=== PATIENT | male | born 1955 | race African-American/Black ===

== ENCOUNTER → 2017-01-11 | Outpatient (CLI) | payer MEDICARE, OTHER ==
[~2017-01-11] MED LIST: /ACETCOD2T PO; CLOP75TA2 PO; FISHCAP PO; MAGN400C2 PO; PRED1SUS OP; SIMVISTATIN PO; SODIUM FLORIDE MT; ZEST40TA PO; aricept PO; neurontin PO
--- NOTE | 2017-01-11 12:15 | REP ---
MRI brain without contrast: History: Dementia. Cerebral infarction and occlusion. Right carotid artery. Comparison MRI study of the brain is from August 02, 2015. Technique: Axial and sagittal imaging planes are utilized for T1 and T2-weighted scans. Sequences include spin-echo, fast spin echo, FLAIR, and diffusion weighted sequences. MRI findings: The previously noted tiny area of increased T2 signal intensity is again seen in the left thalamus unchanged from the August 02, 2015 study. Small vessel atherosclerotic pattern of T2 hyperintensity seen in the periventricular white matter. There is generalized volume loss and concordant ventricular enlargement unchanged from the prior study. A persistent cavum septum pellucidum is again seen. Diffusion weighted scans show no evidence to suggest acute ischemia. There is no evidence of intracranial hemorrhage. No extra-axial fluid collection, mass, infarct or midline shift is seen. Craniocervical junction and upper cervical cord are normal in appearance. There is no MR evidence of significant paranasal sinus disease. No intraorbital abnormality is seen. Impression: Small vessel atherosclerotic changes and some volume loss. No change from comparison study August 02, 2015. No acute intracranial lesion. Signed by Wes Monk MD 01/11/2017 01:18 P
== END ==
LOC: M PLARAD 08:26
PROVIDERS: ATTEND Physician Assistant Medical
DX: F03.90 Unspecified dementia, unspecified severity, without behavioral disturbance, psychotic disturbance, mood disturbance, and anxiety (principal); I65.21 Occlusion and stenosis of right carotid artery; I63.8 Other cerebral infarction

== ENCOUNTER → 2017-01-11 | Outpatient (CLI) | payer MEDICARE, OTHER ==
--- NOTE | 2017-01-11 12:16 | REP ---
Bilateral carotid duplex ultrasound: Comparison is 10/02/2015. The patient has known total occlusion of the right internal carotid artery. Peak flow velocities: Peak ICA flow velocity on the right unobtainable Peak ICA velocity on the left 60 cm/sec. Diastolic ICA velocity on the right unobtainable Diastolic ICA velocity on the left 24 cm/sec IC/CC ratio tab right unobtainable IC/CC ratio left tab 0.72. There is intimal thickening in the left common carotid artery. In the left of bulb, left internal carotid artery and left external carotid there is no visible atheromatous plaque. Impression: There is no evidence of stenosis on the left. 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 There is antegrade flow in the vertebral arteries bilaterally. Signed by Osiel San MD 01/11/2017 11:51 A
== END ==
LOC: M RAD 09:50
PROVIDERS: ATTEND Physician Assistant Medical
DX: I65.21 Occlusion and stenosis of right carotid artery (principal); I63.8 Other cerebral infarction

== ENCOUNTER → 2017-07-16 | Outpatient (CLI) | payer MEDICARE, OTHER ==
[~2017-07-16] MED LIST changes: -/ACETCOD2T PO; -CLOP75TA2 PO; -FISHCAP PO; -MAGN400C2 PO; -PRED1SUS OP; +PROHANCE 279.3MG/ML 15ML VIAL (A9576) As Ordered; -SIMVISTATIN PO; -SODIUM FLORIDE MT; -ZEST40TA PO; -aricept PO; -neurontin PO
== END ==
LOC: M RAD 11:20
DX: H91.22 Sudden idiopathic hearing loss, left ear (principal)
CPT/HCPCS: A9576

== ENCOUNTER → 2018-05-20 | Outpatient (CLI) | payer MEDICARE, OTHER | LOC: M RAD 11:57 | DX: I65.21 Occlusion and stenosis of right carotid artery (principal); I63.89 Other cerebral infarction | CPT/HCPCS: 93880 ==

== ENCOUNTER 2018-10-12 16:21 | Emergency (ER) | payer MEDICARE, OTHER ==
[~2018-10-12] VITALS: Ht 182.9 cm; Wt 74.0 kg
[~2018-10-12 16:21] MED LIST changes: +ACET1TAB15 PO; +CLOP75TA2 PO; +D 1010004 PO; +FISHCAP PO; +GABA-845 PO; +MAGN400C2 PO; +PRED1SUS OP; +PRED20TA PO; -PROHANCE 279.3MG/ML 15ML VIAL (A9576) As Ordered; +SIMVISTATIN PO; +SODIUM FLORIDE MT; +ZEST40TA PO; +aricept PO; +neurontin PO
[2018-10-12] MEDS ORDERED: AMIT10TA (16:48)
[2018-10-12] MEDS ORDERED: BACL1TAB8 PO (16:48)
[2018-10-12] MEDS ORDERED: PRED10TA2 PO (16:48)
[2018-10-12] MEDS ORDERED: MORPHINE 4 MG/ML 1ML VIAL/SYRINGE (J2270) IV PRN (17:30)
[2018-10-12] MEDS ORDERED: ONDANSETRON 4MG/2ML VIAL (J2405) IV ONE (17:30)
[2018-10-12 17:57] LABS: HEMATOCRIT 47.8 % (42.0-52.0); MEAN CORPUSCULAR HEMOGLOBIN 27.9 pg (27.0-33.0); MEAN CORPUSCULAR HGB CONC 33.5 g/dl (32.0-36.5); MEAN CORPUSCULAR VOLUME 83.3 fl (80.0-96.0); PLATELET COUNT, AUTOMATED 389 10^3/uL (150-450); RED BLOOD COUNT 5.74 10^6/uL (4.30-6.10); WHITE BLOOD COUNT 12.8 10^3/uL (4.0-10.0)
[2018-10-12] MEDS ORDERED: VITATAB11 PO (18:33)
[2018-10-12] MEDS ORDERED: PREDOPD OU (18:33)
[2018-10-12] MEDS ORDERED: FISH7.5C PO (18:33)
[2018-10-12] MEDS ORDERED: COQ1200C3 PO (18:33)
[2018-10-12] MEDS ORDERED: ACET-716 PO (18:33)
[2018-10-12] MEDS ORDERED: TURM450C PO (18:33)
[2018-10-12 18:38] LABS: BLOOD UREA NITROGEN 16 MG/DL (7-18); CALCIUM LEVEL 10.4 MG/DL (8.8-10.2); CARBON DIOXIDE LEVEL 28 MEQ/L (21-32); CHLORIDE LEVEL 94 MEQ/L (98-107); CREATININE FOR GFR 1.01 MG/DL (0.70-1.30); GLOMERULAR FILTRATION RATE > 60.0 (>49); GLUCOSE, FASTING 81 MG/DL (70-100); POTASSIUM SERUM 3.6 MEQ/L (3.5-5.1); SODIUM LEVEL 133 MEQ/L (136-145)
[2018-10-12] MEDS ORDERED: LORazepam 2 MG/ML VIAL (J2060) IV STA (20:48)
--- NOTE | 2018-10-12 23:14 | REPVR ---
EXAM: MR Lumbar Spine Without Contrast. EXAM DATE/TIME: 10/12/2018 10:04 PM CLINICAL HISTORY: 63 years old, male; Pain; Lumbago with sciatica; Bilateral; Patient HX: Spasms severe back pain; Additional info: Acute left l3/4 radiculopathy TECHNIQUE: Imaging protocol: Multiplanar magnetic resonance images of the lumbar spine without intravenous contrast. COMPARISON: MRI-Spine, L.S. without con 05/11/2013 2:38 PM FINDINGS: Motion artifact degrades images. Vertebrae: Normal alignment. L1-L2: Diffuse annular bulge at L1-2. Bilateral mild foraminal narrowing. No lateral recess narrowing. L2-L3: Diffuse annular bulge L2-3. Increasing size of a left foraminal disc protrusion with likely impingement of the exiting L2 nerve root on the left. Bilateral facet joint arthropathy. Mild bilateral foraminal narrowing. No lateral recess narrowing. L3-L4: There is a mild central spinal stenosis at L3-4 secondary to diffuse annular bulging, thickened ligamentum flavum and facet joint arthropathy. Moderate bilateral foraminal narrowing. Bilateral lateral recess stenosis. L4-L5: Diffuse annular bulging at L4-5. Bilateral facet joint arthropathy. Moderate to severe bilateral foraminal narrowing. Possible compression of the exiting L4 nerve roots bilaterally. No lateral recess narrowing. L5-S1: Bilateral facet joint arthropathy at L5-S1. Mild bilateral foraminal narrowing. No lateral recess narrowing. Spinal cord: Normal signal. No cord compression. Soft tissues: Unremarkable. IMPRESSION: Diffuse degenerative spondylosis. Mild central spinal stenosis at L3-4. Bilateral foraminal stenosis, mild at L2-3, moderate at L3-4, moderate to severe L4-5 with possible compression of the exiting L4 nerve roots and mild at L5-S1. Increasing size of a left foraminal disc protrusion at L2-3 with possible compression of the exiting nerve root on the left. Electronically signed by: Navid Currie On 10/12/2018 23:14:07 PM
[2018-10-12] MEDS ORDERED: LIDO5DIS41 TD (23:29)
[2018-10-12] MEDS ORDERED: PERC5TAB12 PO (23:29)
[2018-10-12] MEDS ORDERED: OXYCODONE/APAP 5MG/325MG(BULK FOR ED) 1 TABLET PO ONE (23:30)
[2018-10-13 00:44] VITALS: BP 160/76
--- NOTE | 2018-10-13 06:29 | ED PDOC ---
Post-Departure Follow-Up dr aguayo/ridge faxed formal report of mri ls spine for fu Chaparro Cantu MD Oct 13, 2018 06:29
== END 2018-10-13 00:49 | disposition home or self-care (01) ==
LOC: EDBD 16:21 → M ED 16:21
DX: M54.16 Radiculopathy, lumbar region (principal); I10 Essential (primary) hypertension; G30.9 Alzheimer's disease, unspecified; M51.9 Unspecified thoracic, thoracolumbar and lumbosacral intervertebral disc disorder; Z79.899 Other long term (current) drug therapy
CPT/HCPCS: 72148; 80048; 85027; 96374; 96375; 99284; J2060; J2270; J2405

== ENCOUNTER → 2019-08-31 | Outpatient (CLI) | payer MEDICARE, OTHER ==
[~2019-08-31] MED LIST changes: +ACET-716 PO; +AMIT10TA; +BACL1TAB8 PO; +COQ1200C3 PO; +FISH7.5C PO; +LIDO5DIS41 TD; +PERC5TAB12 PO; +PRED10TA2 PO; +PREDOPD OU; +TURM450C PO; +VITATAB11 PO
--- NOTE | 2019-08-31 12:24 | REP ---
Clinical: Symptoms related to atherosclerotic disease and intermittent claudication. Technique: Real time dowling scale and color Doppler evaluation of the bilateral lower extremity arterial vasculature using linear high frequency transducer. Findings: Dowling scale and color images demonstrate extensive bilateral mixed atheromatous plaquing. Monophasic wave patterns are noted bilaterally below the level of the popliteal arteries along with stenosis in the left common femoral artery and proximal anterior tibial artery. Peak systolic velocities (cm/sec) RIGHT LEFT MARIZA 0.8 0.8 Common femoral artery 92.1 289.0 Profunda femoris 120.0 60.4 SFA (proximal) 93.1 68.7 SFA (mid) 92.1 67.2 SFA (distal) 89.5 87.0 Popliteal artery 45.5 55.8 ROHIT (prox.) 20.9 135.0 Tibioperoneal trunk 71.1 65.4 COKE STILL CLEANER (prox.) 68.8 64.6 COKE STILL CLEANER (distal) 65.4 42.8 ROHIT (distal) 58.9 51.3 Impression: Advanced atheromatous changes bilaterally. Focal areas of stenosis suggested in the left common femoral artery and proximal anterior tibial artery. Electronically Signed by Michael Stokes MD 08/31/2019 12:15 P
== END ==
LOC: M RAD 10:31
PROVIDERS: ATTEND Physician Assistant
DX: I70.203 Unspecified atherosclerosis of native arteries of extremities, bilateral legs (principal)

== ENCOUNTER → 2020-08-12 | Outpatient (CLI) | payer MEDICARE, OTHER ==
--- NOTE | 2020-08-12 13:31 | REP ---
INDICATION: STENOSIS COMPARISON: Comparison study May 20, 2018.. TECHNIQUE: Real-time ultrasound evaluation and duplex Doppler interrogation of the extracranial carotid vasculature is performed. FINDINGS: Antegrade flow is observed in both vertebral arteries. Right carotid: The right common carotid artery shows diffuse intimal thickening but is otherwise unremarkable. There is extensive plaquing in the proximal ICA on the right side in the right proximal ICA is again noted to be occluded. Velocity chart right carotid: Right CCA PSV: 56 cm/S Right ICA PSV: 0 cm/S Right ICA EDV: 0 cm/S Right ECA PSV: 62 cm/S Right ICA/CCA ratio: 0 Left carotid: The left common carotid artery shows diffuse intimal thickening but is otherwise unremarkable. There is mild mixed plaquing in the left carotid bulb and proximal ICA on two-dimensional scanning. Color flow and spectral Doppler interrogation are unremarkable on the left. Velocity chart left carotid: Left CCA PSV: 89 cm/S Left ICA PSV: 53 cm/S Left ICA EDV: 23 cm/S Left ECA PSV: 47 cm/S Left ICA/CCA ratio: 0.6 IMPRESSION: The right internal carotid artery is again noted to be occluded. Less than 50% category narrowing in the left ICA by Doppler velocity criteria. Left ICA Doppler velocities have not changed substantially since the prior study. <Electronically signed by Aniket Monk > 08/12/20 [id number]
== END ==
LOC: M RAD 11:35
PROVIDERS: ATTEND Physician Assistant Medical
DX: I65.21 Occlusion and stenosis of right carotid artery (principal); I63.89 Other cerebral infarction

== ENCOUNTER → 2020-09-19 | Outpatient (CLI) | payer OTHER ==
[~2020-09-19] MED LIST changes: -AMIT10TA; +AMIT10TA7
--- NOTE | 2020-09-19 15:44 | REP ---
INDICATION: ATHEROSCLEROSIS COMPARISON: 08/31/2019 TECHNIQUE: Real time dowling scale and color Doppler evaluation of the bilateral lower extremity arterial vasculature using linear high frequency transducer. FINDINGS: Dowling scale and color images demonstrate severe calcified atherosclerotic changes bilaterally. Right lower extremity demonstrates biphasic wave patterns. There is mild stenosis at the common femoral artery as well as 5:1 stenosis involving the proximal anterior tibial artery and occlusion of the distal posterior tibial artery. Left lower extremity demonstrates biphasic wave patterns to the level of the mid superficial femoral artery followed by monophasic wave patterns distally. Large calcifications causing posterior shadowing obscure the possibility of suspected stenosis at the left common femoral artery. Right MARIZA: Not obtainable Left MARIZA: 0.9 Peak systolic velocities (cm/sec) Common femoral artery: Right 77/119; Left 299/141 Profunda femoris: Right 120; Left 178 SFA (proximal): Right 174; Left 95 SFA (mid): Right 82; Left 55 SFA (distal): Right 104; Left 90 Popliteal artery: Right 48; Left 46 ROHIT (prox.): Right 41/221; Left 88 Tibioperoneal trunk: Right 55; Left 36 NOTE TAKER (prox.): Right 48; Left 32 NOTE TAKER (distal): Right occluded; Left 35 ROHIT (distal): Right 50; Left 45 IMPRESSION: 1. Severe calcified atherosclerotic changes as described above including visible stenosis in the right proximal anterior tibial artery and occlusion of the distal right posterior tibial artery. 2. Stenosis at the left common femoral artery cannot be excluded due to significant calcified atheromatous plaquing. 3. Findings appear progressively worse when compared to prior examination. <Electronically signed by Michael Stokes > 09/19/20 [id number]
== END ==
LOC: M RAD 13:52
PROVIDERS: ATTEND Physician Assistant
DX: I70.213 Atherosclerosis of native arteries of extremities with intermittent claudication, bilateral legs (principal)

== ENCOUNTER → 2021-05-05 | Outpatient (CLI) | payer OTHER ==
[~2021-05-05] MED LIST changes: +GABA-283 PO; -GABA-845 PO
--- NOTE | 2021-05-05 19:54 | REP ---
INDICATION: PAIN RIGHT FOOT, HX RIGHT SECOND TOE AMPUTATION COMPARISON: None. TECHNIQUE: AP, lateral, bilateral oblique views right foot. FINDINGS: Patient is noted to be status post partial amputation through the 2nd toe proximal phalanx. Generalized osteopenia and degenerative changes are appreciated. No acute fracture or dislocation. Surrounding soft tissues are relatively normal and without significant swelling, subcutaneous emphysema, or foreign body. IMPRESSION: Prior amputation at the 2nd toe.. Generalized age-related osteopenia and degenerative changes. <Electronically signed by Michael Stokes > 05/05/211950
== END ==
LOC: M RAD 12:40
PROVIDERS: ATTEND Physician Assistant Medical
DX: M85.871 Other specified disorders of bone density and structure, right ankle and foot (principal); M79.671 Pain in right foot; Z89.421 Acquired absence of other right toe(s)

== ENCOUNTER → 2021-12-19 | Outpatient (CLI) | payer MEDICARE, OTHER | LOC: M PLAIMG 15:17 | PROVIDERS: ATTEND Nurse Practitioner Family | DX: Z12.2 Encounter for screening for malignant neoplasm of respiratory organs (principal); Z87.891 Personal history of nicotine dependence ==

== ENCOUNTER → 2022-02-06 | Outpatient (CLI) | payer MEDICARE | LOC: M WHC 10:52 | PROVIDERS: ATTEND Surgery | DX: I65.23 Occlusion and stenosis of bilateral carotid arteries (principal) ==

== ENCOUNTER → 2022-03-06 | Outpatient (CLI) | payer OTHER ==
[~2022-03-06] MED LIST changes: +FISH10005 PO; -FISH7.5C PO
== END ==
LOC: M RAD 16:53
PROVIDERS: ATTEND Nurse Practitioner Family
DX: J44.9 Chronic obstructive pulmonary disease, unspecified (principal); R94.2 Abnormal results of pulmonary function studies; R91.8 Other nonspecific abnormal finding of lung field

== ENCOUNTER → 2022-05-19 | Outpatient (CLI) | payer OTHER ==
[2022-05-19 15:47] LABS: BASO % 0.5 % (0.0-1.0); EOS # 0.1 10^3/uL (0.0-0.5); HEMATOCRIT 44.7 % (42.0-52.0); HEMOGLOBIN 14.7 g/dl (13.5-17.5); LYMPH # 2.5 10^3/uL (1.5-5.0); MEAN CORPUSCULAR HEMOGLOBIN 27.9 pg (27.0-33.0); MEAN CORPUSCULAR HGB CONC 32.9 g/dl (32.0-36.5); MEAN CORPUSCULAR VOLUME 84.8 fl (80.0-96.0); MONO # 0.7 10^3/uL (0.0-0.8); MONO % 8.8 % (2.0-8.0); NEUTROPHILS # 4.7 10^3/uL (1.5-8.5); NEUTROPHILS % 58.5 % (36.0-66.0); PLATELET COUNT, AUTOMATED 342 10^3/uL (150-450); RED BLOOD COUNT 5.27 10^6/uL (4.30-6.10); WHITE BLOOD COUNT 8.1 10^3/uL (4.0-10.0)
[2022-05-19 16:37] LABS: ALBUMIN 3.5 GM/DL (3.2-5.2); ALT/SGPT 14 U/L (12-78); BILIRUBIN,TOTAL 0.5 MG/DL (0.2-1.0); BLOOD UREA NITROGEN 13 MG/DL (7-18); CALCIUM LEVEL 10.2 MG/DL (8.8-10.2); CARBON DIOXIDE LEVEL 32 MEQ/L (21-32); CHLORIDE LEVEL 101 MEQ/L (98-107); CREATININE FOR GFR 1.04 MG/DL (0.70-1.30); GLOMERULAR FILTRATION RATE > 60.0 (>49); GLUCOSE, FASTING 111 MG/DL (70-100); POTASSIUM SERUM 4.1 MEQ/L (3.5-5.1); SODIUM LEVEL 138 MEQ/L (136-145); THYROID STIMULATING HORMONE 0.731 uIU/ML (0.358-3.740); TOTAL PROTEIN 8.3 GM/DL (6.4-8.2)
[2022-05-19 17:17] LABS: FOLATE 22.1 NG/ML; VITAMIN B12 LEVEL 504 PG/ML
== END ==
LOC: M LAB 14:16
PROVIDERS: ATTEND Psychiatry & Neurology Neurology
DX: R41.3 Other amnesia (principal); E53.8 Deficiency of other specified B group vitamins; E51.9 Thiamine deficiency, unspecified; E03.9 Hypothyroidism, unspecified

== ENCOUNTER → 2022-08-10 | Outpatient (CLI) | payer MEDICARE, OTHER | LOC: M RAD 17:20 | PROVIDERS: ATTEND Nurse Practitioner Family | DX: M25.471 Effusion, right ankle (principal); Z89.421 Acquired absence of other right toe(s) ==

== ENCOUNTER → 2022-09-22 | Outpatient (CLI) | payer MEDICARE, OTHER ==
[2022-09-22 15:17] LABS: APPEARANCE, URINE CLEAR (CLEAR); BACTERIA, URINE AUTO NEGATIVE (NEGATIVE); BILIRUBIN, URINE AUTO NEGATIVE (NEGATIVE); BLOOD, URINE BLOOD 1+ (NEGATIVE); COLOR, URINE STRAW (YELLOW); GLUCOSE, URINE (UA) AUTO NEGATIVE (NEGATIVE); KETONE, URINE AUTO NEGATIVE (NEGATIVE); LEUKOCYTE ESTERASE, URINE AUTO NEGATIVE (NEGATIVE); NITRITE, URINE AUTO NEGATIVE (NEGATIVE); PROTEIN, URINE AUTO 1+ mg/dL (NEGATIVE); RBC, URINE AUTO 0 /HPF (0-3); SPECIFIC GRAVITY URINE AUTO 1.004 (1.002-1.035); SQUAMOUS EPITHELIAL CELL UR AU 0 /HPF (0-6); UROBILINOGEN, URINE AUTO 0.2 mg/dL (0.0-2.0); WBC, URINE AUTO 1 /HPF (0-3)
[2022-09-24 23:08] LABS: PSA TOTAL 0.4 ng/mL (0.0-4.0)
== END ==
LOC: M LAB 14:43
PROVIDERS: ATTEND Family Medicine
DX: N39.41 Urge incontinence (principal); R97.20 Elevated prostate specific antigen [PSA]

== ENCOUNTER → 2023-03-18 | Outpatient (CLI) | payer MEDICARE, OTHER ==
[~2023-03-18] MED LIST changes: -GABA-283 PO; +GABA-284 PO
== END ==
LOC: M RAD 12:05
PROVIDERS: ATTEND Surgery
DX: I65.22 Occlusion and stenosis of left carotid artery (principal)

== ENCOUNTER 2023-12-06 10:18 | Emergency (ER) | payer MEDICARE, OTHER ==
[~2023-12-06] VITALS: Ht 182.9 cm; Wt 70.1 kg
[2023-12-06 12:23] LABS: BASO % 0.5 % (0.0-1.0); EOS # 0.1 10^3/uL (0.0-0.5); EOS % 0.8 % (0.0-3.0); HEMATOCRIT 39.7 % (42.0-52.0); HEMOGLOBIN 13.2 g/dl (13.5-17.5); LYMPH # 1.9 10^3/uL (1.5-5.0); LYMPH % 22.9 % (24.0-44.0); MEAN CORPUSCULAR HEMOGLOBIN 26.9 pg (27.0-33.0); MEAN CORPUSCULAR HGB CONC 33.2 g/dl (32.0-36.5); MONO # 0.8 10^3/uL (0.0-0.8); MONO % 9.4 % (2.0-8.0); NEUTROPHILS # 5.6 10^3/uL (1.5-8.5); NEUTROPHILS % 65.9 % (36.0-66.0); PLATELET COUNT, AUTOMATED 360 10^3/uL (150-450); WHITE BLOOD COUNT 8.5 10^3/uL (4.0-10.0)
[2023-12-06 12:48] LABS: BLOOD UREA NITROGEN 9 MG/DL (9-23); CALCIUM LEVEL 9.3 MG/DL (8.3-10.6); CARBON DIOXIDE LEVEL 25 MMOL/L (20-31); CHLORIDE LEVEL 98 MMOL/L (98-107); CREATININE FOR GFR 0.88 MG/DL (0.70-1.30); GLOMERULAR FILTRATION RATE > 60.0 (>49); GLUCOSE, FASTING 74 MG/DL (74-106); POTASSIUM SERUM 3.9 MMOL/L (3.5-5.1); SODIUM LEVEL 130 MMOL/L (136-145)
[2023-12-06] MEDS ORDERED: MORPHINE 4 MG/ML 1ML VIAL IV ONE (14:25)
[2023-12-06] MEDS ORDERED: ONDANSETRON 4MG 2ML VIAL IV ONE (14:25)
[2023-12-06] MEDS: NS 1,000 ML IV ONE (15:26)
[2023-12-06] MEDS: ACETAMINOPHEN *IV* 1,000 MG in IV 1 EA IV ONE (15:27)
[2023-12-06] MEDS: DALBAVANCIN 1,500 MG in D5W 250 ML IV ONE (15:27)
[2023-12-06] MEDS ORDERED: TRAM50TA2 PO (15:57)
[2023-12-06 16:04] VITALS: BP 200/100; TEMP 96.3; O2SAT 100
== END 2023-12-06 17:00 | disposition home or self-care (01) ==
LOC: M ED 10:18
DX: S91.002A Unspecified open wound, left ankle, initial encounter (principal); L03.116 Cellulitis of left lower limb; R22.42 Localized swelling, mass and lump, left lower limb; X58.XXXA Exposure to other specified factors, initial encounter; Y92.9 Unspecified place or not applicable; Y93.9 Activity, unspecified; Y99.9 Unspecified external cause status; I10 Essential (primary) hypertension; E78.5 Hyperlipidemia, unspecified; Z86.73 Personal history of transient ischemic attack (TIA), and cerebral infarction without residual deficits; Z79.899 Other long term (current) drug therapy
CPT/HCPCS: 73610; 80048; 83605; 85025; 86140; 87040; 87070; 87077; 87186; 96374; 96375; 99283; J0131; J0875

== ENCOUNTER 2023-12-15 18:55 | Emergency (ER) | payer MEDICARE, OTHER ==
[~2023-12-15] VITALS: Ht 182.9 cm; Wt 70.0 kg
[~2023-12-15 18:55] MED LIST changes: +TRAM50TA2 PO
[2023-12-15 20:04] LABS: BASO % 0.3 % (0.0-1.0); EOS % 0.2 % (0.0-3.0); HEMATOCRIT 36.9 % (42.0-52.0); HEMOGLOBIN 12.5 g/dl (13.5-17.5); LYMPH # 1.2 10^3/uL (1.5-5.0); LYMPH % 10.1 % (24.0-44.0); MEAN CORPUSCULAR HEMOGLOBIN 27.1 pg (27.0-33.0); MEAN CORPUSCULAR HGB CONC 33.9 g/dl (32.0-36.5); MEAN CORPUSCULAR VOLUME 79.9 fl (80.0-96.0); MONO # 1.1 10^3/uL (0.0-0.8); MONO % 9.4 % (2.0-8.0); NEUTROPHILS # 9.4 10^3/uL (1.5-8.5); NEUTROPHILS % 79.7 % (36.0-66.0); PLATELET COUNT, AUTOMATED 389 10^3/uL (150-450); RED BLOOD COUNT 4.62 10^6/uL (4.30-6.10); WHITE BLOOD COUNT 11.7 10^3/uL (4.0-10.0)
[2023-12-15 20:08] LABS: ERYTHROCYTE SEDIMENTATION RATE > 130 mm/hr (0-20)
[2023-12-15] MEDS ORDERED: VANCOMYCIN HCL 1,500 MG in IV FLUID PLACE HOLDER 1 EA IV ONE (20:20)
[2023-12-15 20:33] LABS: ALBUMIN 2.8 G/DL (3.2-5.2); ALKALINE PHOSPHATASE 77 U/L (46-116); ALT/SGPT 12 U/L (7.0-40); AST/SGOT 48 U/L (<34); BILIRUBIN,DIRECT 0.2 MG/DL (<0.4); BILIRUBIN,TOTAL 0.5 MG/DL (0.3-1.2); BLOOD UREA NITROGEN 17 MG/DL (9-23); CALCIUM LEVEL 9.4 MG/DL (8.3-10.6); CARBON DIOXIDE LEVEL 26 MMOL/L (20-31); CHLORIDE LEVEL 99 MMOL/L (98-107); CREATININE FOR GFR 0.87 MG/DL (0.70-1.30); GLOMERULAR FILTRATION RATE > 60.0 (>49); GLUCOSE, FASTING 87 MG/DL (74-106); SODIUM LEVEL 131 MMOL/L (136-145); TOTAL PROTEIN 7.1 G/DL (5.7-8.2)
[2023-12-15] MEDS: VANCOMYCIN HCL 750 MG, VIAL MATE ADAPTER 1 EACH in D5W 250 ML IV ONE ×2 (20:44→21:44)
[2023-12-15] MEDS: NS 1,000 ML IV ONE (20:44)
[2023-12-15] MEDS: MORPHINE 4 MG/ML 1ML VIAL IV ONE (21:44)
[2023-12-15 22:38] VITALS: BP 172/90; TEMP 99; O2SAT 95
[2023-12-15] MEDS ORDERED: CIPR-249 PO (23:15)
[2023-12-15] MEDS: PIPERACILLIN/TAZOBACTAM SOD 3.375 GM in D5W MINI-BAG PLUS 50 ML IV ONE (23:25)
[2023-12-16] MEDS ORDERED: TRAM50TA2 PO (20:26)
[2023-12-16] MEDS ORDERED: VITACAP8 PO (20:26)
[2023-12-16] MEDS ORDERED: CLIN-250 PO (20:26)
[2023-12-16] MEDS ORDERED: TURM500C3 PO (20:26)
[2023-12-16] MEDS ORDERED: D 101000 PO (20:26)
== END 2023-12-16 01:06 | disposition left against medical advice (07) ==
LOC: M ED 18:55
DX: L97.929 Non-pressure chronic ulcer of unspecified part of left lower leg with unspecified severity (principal); L03.116 Cellulitis of left lower limb; Z53.9 Procedure and treatment not carried out, unspecified reason; I10 Essential (primary) hypertension; E78.5 Hyperlipidemia, unspecified; F32.9 Major depressive disorder, single episode, unspecified; Z87.891 Personal history of nicotine dependence; Z79.899 Other long term (current) drug therapy
CPT/HCPCS: 73610; 80048; 80076; 85025; 85652; 86140; 87040; 87070; 87077; 87186; 87205; 93971; 96365; 96366; 96367; 96375; 99284; J2543; J3370

== ENCOUNTER 2023-12-16 13:54 | Emergency (ER) | payer MEDICARE, OTHER ==
[~2023-12-16] VITALS: Ht 180.3 cm; Wt 68.2 kg
[~2023-12-16 13:54] MED LIST changes: +CIPR-249 PO
[2023-12-16] MEDS ORDERED: VANCOMYCIN HCL 1,250 MG in NS 250 ML IV ONE (14:25)
[2023-12-16] MEDS ORDERED: ISOVUE-370 76% 100ML VIAL As Ordered ONE (14:37)
[2023-12-16] MEDS: VANCOMYCIN HCL 750 MG, VIAL MATE ADAPTER 1 EACH in D5W 250 ML IV ONE (15:07)
[2023-12-16 16:00] LABS: BASO % 0.3 % (0.0-1.0); EOS % 0.2 % (0.0-3.0); HEMATOCRIT 40.6 % (42.0-52.0); HEMOGLOBIN 13.7 g/dl (13.5-17.5); LYMPH # 1.3 10^3/uL (1.5-5.0); LYMPH % 10.8 % (24.0-44.0); MEAN CORPUSCULAR HEMOGLOBIN 27.2 pg (27.0-33.0); MEAN CORPUSCULAR HGB CONC 33.7 g/dl (32.0-36.5); MEAN CORPUSCULAR VOLUME 80.7 fl (80.0-96.0); MONO # 1.2 10^3/uL (0.0-0.8); MONO % 9.6 % (2.0-8.0); NEUTROPHILS # 9.8 10^3/uL (1.5-8.5); NEUTROPHILS % 78.8 % (36.0-66.0); PLATELET COUNT, AUTOMATED 423 10^3/uL (150-450); RED BLOOD COUNT 5.03 10^6/uL (4.30-6.10); WHITE BLOOD COUNT 12.4 10^3/uL (4.0-10.0)
[2023-12-16] MEDS: VANCOMYCIN HCL 500 MG in D5W MINI-BAG PLUS 100 ML IV ONE (16:12)
[2023-12-16] MEDS: ONDANSETRON 4MG 2ML VIAL IV ONE (19:00)
[2023-12-16] MEDS: MORPHINE 2 MG/ML 1ML VIAL IV PRN (19:02)
[2023-12-16] MEDS ORDERED: CLIN-250 PO (20:26)
[2023-12-16] MEDS ORDERED: TRAM50TA2 PO (20:26)
[2023-12-16] MEDS ORDERED: D 101000 PO (20:26)
[2023-12-16] MEDS ORDERED: VITACAP8 PO (20:26)
[2023-12-16] MEDS ORDERED: TURM500C3 PO (20:26)
[2023-12-16] MEDS ORDERED: HOME MED LIST COMPLETE! XX SCH (20:30)
[2023-12-16 21:46] VITALS: BP 156/67; TEMP 99; O2SAT 95
== END 2023-12-16 21:52 | disposition short-term general hospital (02) ==
LOC: EDBD 13:54 → M ED 13:54
DX: L03.116 Cellulitis of left lower limb (principal); I73.9 Peripheral vascular disease, unspecified; M32.9 Systemic lupus erythematosus, unspecified; Z87.820 Personal history of traumatic brain injury; Z86.73 Personal history of transient ischemic attack (TIA), and cerebral infarction without residual deficits; Z87.891 Personal history of nicotine dependence; Z79.899 Other long term (current) drug therapy
CPT/HCPCS: 75635; 83605; 85025; 96374; 96375; 96376; 99285; J2405; J3370; Q9967

== ENCOUNTER → 2024-01-05 | Outpatient (REF) ==
[~2024-01-05] MED LIST changes: +CLIN-250 PO; +D 101000 PO; +TURM500C3 PO; +VITACAP8 PO
== END ==
LOC: SKLAB2 16:15
PROVIDERS: ATTEND Internal Medicine
DX: Z79.01 Long term (current) use of anticoagulants (principal); I82.409 Acute embolism and thrombosis of unspecified deep veins of unspecified lower extremity; Z53.8 Procedure and treatment not carried out for other reasons

== ENCOUNTER → 2024-01-05 | Outpatient (REF) ==
[2024-01-05 17:57] LABS: INR 1.47; PROTHROMBIN TIME 17.4 SECONDS (12.5-14.5)
== END ==
LOC: SKLAB2 16:29
PROVIDERS: ATTEND Internal Medicine
DX: Z79.01 Long term (current) use of anticoagulants (principal); I82.409 Acute embolism and thrombosis of unspecified deep veins of unspecified lower extremity

== ENCOUNTER → 2024-01-06 | Outpatient (REF) ==
[2024-01-06 12:20] LABS: HEMATOCRIT 26.3 % (42.0-52.0); HEMOGLOBIN 8.7 g/dl (13.5-17.5); MEAN CORPUSCULAR HEMOGLOBIN 26.7 pg (27.0-33.0); MEAN CORPUSCULAR HGB CONC 33.1 g/dl (32.0-36.5); MEAN CORPUSCULAR VOLUME 80.7 fl (80.0-96.0); PLATELET COUNT, AUTOMATED 522 10^3/uL (150-450); RED BLOOD COUNT 3.26 10^6/uL (4.30-6.10); WHITE BLOOD COUNT 7.7 10^3/uL (4.0-10.0)
[2024-01-06 12:41] LABS: INR 1.4; PROTHROMBIN TIME 16.7 SECONDS (12.5-14.5)
== END ==
LOC: SKLAB2 09:48
PROVIDERS: ATTEND Internal Medicine
DX: Z79.01 Long term (current) use of anticoagulants (principal)

== ENCOUNTER → 2024-01-08 | Outpatient (REF) | payer MEDICARE, OTHER ==
[~2024-01-08] MED LIST changes: +AMLO1TAB24 PO; +COEN100T PO; +WARF4TAB52 PO
[2024-01-08 10:19] LABS: PROTHROMBIN TIME 21.9 SECONDS (12.5-14.5)
== END ==
LOC: SKLAB2 09:10
PROVIDERS: ATTEND Internal Medicine
DX: Z47.81 Encounter for orthopedic aftercare following surgical amputation (principal); Z89.611 Acquired absence of right leg above knee

== ENCOUNTER → 2024-01-09 | Outpatient (REF) | payer MEDICARE, OTHER ==
[2024-01-09 16:52] LABS: INR 2.48; PROTHROMBIN TIME 25.9 SECONDS (12.5-14.5)
== END ==
LOC: SKLAB2 15:04
PROVIDERS: ATTEND Internal Medicine
DX: Z47.81 Encounter for orthopedic aftercare following surgical amputation (principal); Z89.611 Acquired absence of right leg above knee

== ENCOUNTER 2024-01-11 14:49 | Inpatient (IN) | payer OTHER, MEDICARE ==
[2024-01-11] VITALS (9 sets, daily range): BP systolic 129–156; BP diastolic 57–73; TEMP 97.3–98.8; O2SAT 97–100
[~2024-01-11] VITALS: Ht 182.9 cm; Wt 60.4 kg
[~2024-01-11 14:49] MED LIST changes: -AMLO1TAB24 PO; -COEN100T PO; -WARF4TAB52 PO
[2024-01-11 16:12] LABS: BASO % 0.1 % (0.0-1.0); EOS # 0.1 10^3/uL (0.0-0.5); EOS % 0.8 % (0.0-3.0); LYMPH % 27.1 % (24.0-44.0); MEAN CORPUSCULAR HEMOGLOBIN 26.4 pg (27.0-33.0); MEAN CORPUSCULAR HGB CONC 32.3 g/dl (32.0-36.5); MEAN CORPUSCULAR VOLUME 81.6 fl (80.0-96.0); MONO # 0.4 10^3/uL (0.0-0.8); MONO % 5.9 % (2.0-8.0); NEUTROPHILS # 4.9 10^3/uL (1.5-8.5); NEUTROPHILS % 65.7 % (36.0-66.0); PLATELET COUNT, AUTOMATED 408 10^3/uL (150-450); RED BLOOD COUNT 2.01 10^6/uL (4.30-6.10); WHITE BLOOD COUNT 7.4 10^3/uL (4.0-10.0)
[2024-01-11 16:13] LABS: HEMATOCRIT 16.4 % (42.0-52.0)
[2024-01-11 16:15] LABS: HEMOGLOBIN 5.3 g/dl (13.5-17.5)
[2024-01-11 16:40] LABS: LIPASE 38 U/L (12-53)
[2024-01-11 16:42] LABS: ALBUMIN 2.6 G/DL (3.2-5.2); ALKALINE PHOSPHATASE 71 U/L (46-116); ALT/SGPT < 9 U/L (7.0-40); AST/SGOT 16 U/L (<34); BILIRUBIN,DIRECT < 0.1 MG/DL (<0.4); BILIRUBIN,TOTAL 0.2 MG/DL (0.3-1.2); BLOOD UREA NITROGEN 26 MG/DL (9-23); CALCIUM LEVEL 9.4 MG/DL (8.3-10.6); CARBON DIOXIDE LEVEL 24 MMOL/L (20-31); CHLORIDE LEVEL 104 MMOL/L (98-107); CREATININE FOR GFR 0.73 MG/DL (0.70-1.30); GLOMERULAR FILTRATION RATE > 60.0 (>49); GLUCOSE, FASTING 94 MG/DL (74-106); POTASSIUM SERUM 3.9 MMOL/L (3.5-5.1); SODIUM LEVEL 133 MMOL/L (136-145); TOTAL PROTEIN 6.3 G/DL (5.7-8.2)
[2024-01-11] MEDS: PANTOPRAZOLE 40MG VIAL IV ONE ×2 (16:45→19:33)
[2024-01-11] MEDS ORDERED: ISOVUE-370 76% 100ML VIAL As Ordered ONE (17:42)
[2024-01-11 18:33] LABS: LDH LACTATE DEHYDROGENASE 197 U/L (120-246)
[2024-01-11 18:34] LABS: IRON (FE) 17 UG/DL (65-175); PERCENT SATURATION 5.9 % (19.7-50.0); TOTAL IRON BINDING CAPACITY 289 UG/DL (250-425)
[2024-01-11 18:37] LABS: FERRITIN 67.9 NG/ML (10.5-307.3); FOLATE 15.82 NG/ML (>5.4); VITAMIN B12 LEVEL 566 PG/ML (211-911)
[2024-01-11] MEDS ORDERED: MOM 30ML SUSPENSION UDC PO PRN (18:55)
[2024-01-11 19:44] LABS: MEAN CORPUSCULAR HEMOGLOBIN 26.6 pg (27.0-33.0); MEAN CORPUSCULAR HGB CONC 32.4 g/dl (32.0-36.5); MEAN CORPUSCULAR VOLUME 82.1 fl (80.0-96.0); PLATELET COUNT, AUTOMATED 396 10^3/uL (150-450); RED BLOOD COUNT 2.29 10^6/uL (4.30-6.10); WHITE BLOOD COUNT 6.6 10^3/uL (4.0-10.0)
[2024-01-11 19:57] LABS: HEMOGLOBIN 6.1 g/dl (13.5-17.5)
[2024-01-11 19:58] LABS: HEMATOCRIT 18.8 % (42.0-52.0)
[2024-01-11] MEDS: ACETAMINOPHEN TAB 650MG DOSE (2X325MG) PO PRN (20:21)
[2024-01-11] MEDS ORDERED: WARF4TAB52 PO (22:48)
[2024-01-11] MEDS ORDERED: COEN100T PO (22:48)
[2024-01-11] MEDS ORDERED: AMLO1TAB24 PO (22:48)
[2024-01-11] MEDS ORDERED: HOME MED LIST COMPLETE! XX SCH (22:50)
[2024-01-11] MEDS: DOCUSATE SODIUM 100MG CAPSULE PO SCH (23:08)
[2024-01-11 23:27] LABS: MEAN CORPUSCULAR HEMOGLOBIN 27.9 pg (27.0-33.0); MEAN CORPUSCULAR HGB CONC 34.3 g/dl (32.0-36.5); MEAN CORPUSCULAR VOLUME 81.1 fl (80.0-96.0); PLATELET COUNT, AUTOMATED 357 10^3/uL (150-450); RED BLOOD COUNT 2.44 10^6/uL (4.30-6.10); WHITE BLOOD COUNT 7.1 10^3/uL (4.0-10.0)
[2024-01-11 23:31] LABS: HEMOGLOBIN 6.8 g/dl (13.5-17.5)
[2024-01-11 23:32] LABS: HEMATOCRIT 19.8 % (42.0-52.0)
[2024-01-12] VITALS (12 sets, daily range): BP systolic 134–159; BP diastolic 60–75; TEMP 97.4–98.1; O2SAT 97–100
[2024-01-12] MEDS: FUROSEMIDE 20MG/2ML VIAL IV ONE (01:28)
[2024-01-12] MEDS: diphenhydrAMINE 50MG/ML VIAL IV ONE (02:11)
[2024-01-12 06:34] LABS: BASO % 0.4 % (0.0-1.0); EOS # 0.1 10^3/uL (0.0-0.5); EOS % 1.7 % (0.0-3.0); LYMPH # 2.1 10^3/uL (1.5-5.0); LYMPH % 30.8 % (24.0-44.0); MEAN CORPUSCULAR HEMOGLOBIN 28.1 pg (27.0-33.0); MEAN CORPUSCULAR HGB CONC 34.2 g/dl (32.0-36.5); MONO # 0.6 10^3/uL (0.0-0.8); MONO % 8.2 % (2.0-8.0); NEUTROPHILS # 4.1 10^3/uL (1.5-8.5); NEUTROPHILS % 58.8 % (36.0-66.0); PLATELET COUNT, AUTOMATED 372 10^3/uL (150-450); RED BLOOD COUNT 3.17 10^6/uL (4.30-6.10); WHITE BLOOD COUNT 6.9 10^3/uL (4.0-10.0)
[2024-01-12 06:41] LABS: HEMOGLOBIN 8.9 g/dl (13.5-17.5)
[2024-01-12 06:50] LABS: INR 3.81; PROTHROMBIN TIME 36.1 SECONDS (12.5-14.5)
[2024-01-12 06:51] LABS: BLOOD UREA NITROGEN 18 MG/DL (9-23); CALCIUM LEVEL 9.3 MG/DL (8.3-10.6); CARBON DIOXIDE LEVEL 24 MMOL/L (20-31); CHLORIDE LEVEL 103 MMOL/L (98-107); CREATININE FOR GFR 0.79 MG/DL (0.70-1.30); GLOMERULAR FILTRATION RATE > 60.0 (>49); GLUCOSE, FASTING 86 MG/DL (74-106); POTASSIUM SERUM 3.5 MMOL/L (3.5-5.1); SODIUM LEVEL 133 MMOL/L (136-145)
[2024-01-12] MEDS: PANTOPRAZOLE 40MG VIAL IV SCH (08:56)
[2024-01-12] MEDS: METAMUCIL (PSYLLIUM) PACKET PO SCH (08:56)
[2024-01-12] MEDS: ACETAMINOPHEN 500 MG TAB PO PRN (08:58)
[2024-01-12] MEDS: GABAPENTIN 400MG CAP PO SCH (08:59)
[2024-01-12] MEDS: MIRALAX *UNIT DOSE* 17GM PACKET PO SCH (09:00)
[2024-01-12] MEDS: D5W/0.45% SODIUM CHLORIDE 1,000 ML IV SCH (09:02)
[2024-01-12] MEDS: FERRIC CARBOXYMALTOSE INJ 750 MG, VIAL MATE ADAPTER 1 EACH in NS 250 ML IV ONE (09:17)
[2024-01-12] MEDS: MAGNESIUM CITRATE 300ML BTL PO SCH (09:18)
[2024-01-12] MEDS: SENNA 8.6 MG TAB (SENOKOT) PO SCH (11:43)
[2024-01-12 14:34] LABS: HEMOGLOBIN 8.2 g/dl (13.5-17.5); MEAN CORPUSCULAR HEMOGLOBIN 28.4 pg (27.0-33.0); MEAN CORPUSCULAR HGB CONC 34.2 g/dl (32.0-36.5); PLATELET COUNT, AUTOMATED 388 10^3/uL (150-450); RED BLOOD COUNT 2.89 10^6/uL (4.30-6.10); WHITE BLOOD COUNT 7.3 10^3/uL (4.0-10.0)
[2024-01-12 18:47] LABS: HEMATOCRIT 27.7 % (42.0-52.0); HEMOGLOBIN 9.2 g/dl (13.5-17.5); MEAN CORPUSCULAR HEMOGLOBIN 28.4 pg (27.0-33.0); MEAN CORPUSCULAR HGB CONC 33.2 g/dl (32.0-36.5); MEAN CORPUSCULAR VOLUME 85.5 fl (80.0-96.0); PLATELET COUNT, AUTOMATED 385 10^3/uL (150-450); RED BLOOD COUNT 3.24 10^6/uL (4.30-6.10); WHITE BLOOD COUNT 7.6 10^3/uL (4.0-10.0)
[2024-01-12] MEDS: GOLYTELY SOLN 4000 ML BTL PO ONE (20:16)
[2024-01-13] VITALS (7 sets, daily range): BP systolic 122–176; BP diastolic 58–80; TEMP 96.9–98.2; O2SAT 96–100
[2024-01-13 00:45] LABS: HEMATOCRIT 24.4 % (42.0-52.0); HEMOGLOBIN 8.2 g/dl (13.5-17.5); MEAN CORPUSCULAR HEMOGLOBIN 27.5 pg (27.0-33.0); MEAN CORPUSCULAR HGB CONC 33.6 g/dl (32.0-36.5); MEAN CORPUSCULAR VOLUME 81.9 fl (80.0-96.0); PLATELET COUNT, AUTOMATED 375 10^3/uL (150-450); RED BLOOD COUNT 2.98 10^6/uL (4.30-6.10); WHITE BLOOD COUNT 7.4 10^3/uL (4.0-10.0)
[2024-01-13 07:57] LABS: BASO % 0.3 % (0.0-1.0); EOS # 0.2 10^3/uL (0.0-0.5); EOS % 2.3 % (0.0-3.0); HEMOGLOBIN 8.7 g/dl (13.5-17.5); LYMPH # 1.5 10^3/uL (1.5-5.0); LYMPH % 22.1 % (24.0-44.0); MEAN CORPUSCULAR HEMOGLOBIN 27.7 pg (27.0-33.0); MEAN CORPUSCULAR HGB CONC 33.5 g/dl (32.0-36.5); MEAN CORPUSCULAR VOLUME 82.8 fl (80.0-96.0); MONO # 0.7 10^3/uL (0.0-0.8); MONO % 9.4 % (2.0-8.0); NEUTROPHILS # 4.5 10^3/uL (1.5-8.5); NEUTROPHILS % 65.6 % (36.0-66.0); PLATELET COUNT, AUTOMATED 402 10^3/uL (150-450); RED BLOOD COUNT 3.14 10^6/uL (4.30-6.10); WHITE BLOOD COUNT 6.9 10^3/uL (4.0-10.0)
[2024-01-13 08:28] LABS: BLOOD UREA NITROGEN 10 MG/DL (9-23); CALCIUM LEVEL 8.9 MG/DL (8.3-10.6); CARBON DIOXIDE LEVEL 27 MMOL/L (20-31); CHLORIDE LEVEL 103 MMOL/L (98-107); CREATININE FOR GFR 0.62 MG/DL (0.70-1.30); GLOMERULAR FILTRATION RATE > 60.0 (>49); GLUCOSE, FASTING 111 MG/DL (74-106); POTASSIUM SERUM 3.7 MMOL/L (3.5-5.1); SODIUM LEVEL 135 MMOL/L (136-145)
[2024-01-13 09:40] LABS: PROTHROMBIN TIME 45.7 SECONDS (12.5-14.5)
[2024-01-13 09:45] LABS: INR 5.17
[2024-01-13] MEDS: FLEET ENEMA PR ONE (11:14)
[2024-01-13] MEDS: D5W/0.45% SODIUM CHLORIDE 1,000 ML IV SCH (11:14)
[2024-01-13] MEDS: PHYTONADIONE 5 MG TAB PO ONE (11:14)
[2024-01-13 11:53] LABS: HEMATOCRIT 25.7 % (42.0-52.0); HEMOGLOBIN 8.6 g/dl (13.5-17.5); MEAN CORPUSCULAR HEMOGLOBIN 28.3 pg (27.0-33.0); MEAN CORPUSCULAR HGB CONC 33.5 g/dl (32.0-36.5); MEAN CORPUSCULAR VOLUME 84.5 fl (80.0-96.0); PLATELET COUNT, AUTOMATED 389 10^3/uL (150-450); RED BLOOD COUNT 3.04 10^6/uL (4.30-6.10); WHITE BLOOD COUNT 8.2 10^3/uL (4.0-10.0)
[2024-01-13] MEDS ORDERED: LIDOCAINE 2% 100MG/5ML SDV (FOR ANES.) As Ordered ONE (11:54)
[2024-01-13] MEDS ORDERED: propofoL 200 MG/20 ML VIAL As Ordered ONE (11:54)
[2024-01-13] MEDS: PHYTONADIONE INJection 5 MG in NS 50 ML IV ONE (12:01)
[2024-01-13] MEDS ORDERED: fentaNYL 100 MCG/2 ML INJECTION As Ordered ONE (12:08)
[2024-01-13] MEDS ORDERED: ACETAMINOPHEN TAB 650MG DOSE (2X325MG) PO PRN (17:05)
[2024-01-13] MEDS ORDERED: PERCOCET 5MG/325MG TAB PO PRN (17:05)
[2024-01-13] MEDS: PERCOCET 5MG/325MG TAB PO PRN (17:27)
[2024-01-13 18:58] LABS: HEMOGLOBIN 9.2 g/dl (13.5-17.5); MEAN CORPUSCULAR HEMOGLOBIN 28.6 pg (27.0-33.0); MEAN CORPUSCULAR HGB CONC 34.1 g/dl (32.0-36.5); MEAN CORPUSCULAR VOLUME 83.9 fl (80.0-96.0); PLATELET COUNT, AUTOMATED 435 10^3/uL (150-450); RED BLOOD COUNT 3.22 10^6/uL (4.30-6.10); WHITE BLOOD COUNT 8.6 10^3/uL (4.0-10.0)
[2024-01-13] MEDS: PANTOPRAZOLE 40MG TAB (PROTONIX) PO SCH (20:40)
[2024-01-14 00:50] LABS: HEMATOCRIT 23.1 % (42.0-52.0); HEMOGLOBIN 7.8 g/dl (13.5-17.5); MEAN CORPUSCULAR HEMOGLOBIN 28.5 pg (27.0-33.0); MEAN CORPUSCULAR HGB CONC 33.8 g/dl (32.0-36.5); MEAN CORPUSCULAR VOLUME 84.3 fl (80.0-96.0); PLATELET COUNT, AUTOMATED 384 10^3/uL (150-450); RED BLOOD COUNT 2.74 10^6/uL (4.30-6.10); WHITE BLOOD COUNT 7.9 10^3/uL (4.0-10.0)
[2024-01-14 04:00] VITALS: BP 145/67; TEMP 97.8; O2SAT 98
[2024-01-14 07:06] LABS: BASO % 0.3 % (0.0-1.0); EOS # 0.2 10^3/uL (0.0-0.5); EOS % 3.2 % (0.0-3.0); HEMATOCRIT 24.9 % (42.0-52.0); HEMOGLOBIN 8.3 g/dl (13.5-17.5); LYMPH # 1.8 10^3/uL (1.5-5.0); LYMPH % 24.7 % (24.0-44.0); MEAN CORPUSCULAR HGB CONC 33.3 g/dl (32.0-36.5); MEAN CORPUSCULAR VOLUME 84.1 fl (80.0-96.0); MONO # 0.8 10^3/uL (0.0-0.8); MONO % 10.6 % (2.0-8.0); NEUTROPHILS # 4.4 10^3/uL (1.5-8.5); NEUTROPHILS % 60.9 % (36.0-66.0); PLATELET COUNT, AUTOMATED 408 10^3/uL (150-450); RED BLOOD COUNT 2.96 10^6/uL (4.30-6.10); WHITE BLOOD COUNT 7.2 10^3/uL (4.0-10.0)
[2024-01-14 07:20] LABS: INR 1.27; PROTHROMBIN TIME 15.5 SECONDS (12.5-14.5)
[2024-01-14 07:29] LABS: BLOOD UREA NITROGEN 7 MG/DL (9-23); CALCIUM LEVEL 9.1 MG/DL (8.3-10.6); CARBON DIOXIDE LEVEL 27 MMOL/L (20-31); CHLORIDE LEVEL 106 MMOL/L (98-107); GLOMERULAR FILTRATION RATE > 60.0 (>49); GLUCOSE, FASTING 86 MG/DL (74-106); SODIUM LEVEL 138 MMOL/L (136-145)
[2024-01-14 08:00] VITALS: BP 148/67; TEMP 98.6; O2SAT 98
[2024-01-14] MEDS: ATORVASTATIN 20 MG TAB PO SCH (12:12)
[2024-01-14 12:13] VITALS: BP 160/80; TEMP 97.9; O2SAT 97
[2024-01-14] MEDS: amLODIPine 5 MG TAB PO SCH (12:13)
[2024-01-14 14:19] LABS: HEMATOCRIT 25.7 % (42.0-52.0); HEMOGLOBIN 8.5 g/dl (13.5-17.5); MEAN CORPUSCULAR HEMOGLOBIN 28.3 pg (27.0-33.0); MEAN CORPUSCULAR HGB CONC 33.1 g/dl (32.0-36.5); MEAN CORPUSCULAR VOLUME 85.7 fl (80.0-96.0); PLATELET COUNT, AUTOMATED 414 10^3/uL (150-450); WHITE BLOOD COUNT 7.8 10^3/uL (4.0-10.0)
[2024-01-14] MEDS ORDERED: PANT40TA29 PO (15:24)
[2024-01-14] MEDS ORDERED: ATOR1TAB21 PO (15:24)
[2024-01-14 15:41] VITALS: BP 145/65; TEMP 98.2; O2SAT 99
[2024-01-15] MEDS ORDERED: CO-ENZYME Q10 50 MG CAP PO SCH ×2 (09:00)
== END 2024-01-14 18:31 | DRG 813 ==
LOC: EDBD 14:49 → M ED 14:49 → M ED INP 18:51 → M PCU 22:05 → M 4MAIN 01-14 18:30
PROVIDERS: ADMIT Student in an Organized Health Care Education/Training Program; ATTEND Student in an Organized Health Care Education/Training Program
PROC: 30233N1 Transfusion of Nonautologous Red Blood Cells into Peripheral Vein, Percutaneous Approach (ICD-10-PCS; 2024-01-11)
PROC: 0DJD8ZZ Inspection of Lower Intestinal Tract, Via Natural or Artificial Opening Endoscopic (ICD-10-PCS; 2024-01-13)
PROC: 0DJ08ZZ Inspection of Upper Intestinal Tract, Via Natural or Artificial Opening Endoscopic (ICD-10-PCS; principal; 2024-01-13 13:30)
DX: D68.32 Hemorrhagic disorder due to extrinsic circulating anticoagulants (principal); D68.61 Antiphospholipid syndrome; K92.2 Gastrointestinal hemorrhage, unspecified; D62 Acute posthemorrhagic anemia; I70.203 Unspecified atherosclerosis of native arteries of extremities, bilateral legs; I10 Essential (primary) hypertension; M19.90 Unspecified osteoarthritis, unspecified site; F43.10 Post-traumatic stress disorder, unspecified; J84.10 Pulmonary fibrosis, unspecified; H91.93 Unspecified hearing loss, bilateral; K29.80 Duodenitis without bleeding; I73.1 Thromboangiitis obliterans [Buerger's disease]; K29.50 Unspecified chronic gastritis without bleeding; I25.10 Atherosclerotic heart disease of native coronary artery without angina pectoris; I27.20 Pulmonary hypertension, unspecified; E78.5 Hyperlipidemia, unspecified; G89.29 Other chronic pain; K59.03 Drug induced constipation; T40.2X5A Adverse effect of other opioids, initial encounter; D50.9 Iron deficiency anemia, unspecified; K57.30 Diverticulosis of large intestine without perforation or abscess without bleeding; K64.9 Unspecified hemorrhoids; Z89.612 Acquired absence of left leg above knee; Z86.73 Personal history of transient ischemic attack (TIA), and cerebral infarction without residual deficits; Z79.02 Long term (current) use of antithrombotics/antiplatelets; Z79.01 Long term (current) use of anticoagulants; Z79.899 Other long term (current) drug therapy

== ENCOUNTER → 2024-01-11 | Outpatient (REF) | payer MEDICARE, OTHER ==
[2024-01-11 14:03] LABS: BASO % 0.3 % (0.0-1.0); EOS % 0.6 % (0.0-3.0); LYMPH # 1.4 10^3/uL (1.5-5.0); LYMPH % 19.7 % (24.0-44.0); MEAN CORPUSCULAR HEMOGLOBIN 26.5 pg (27.0-33.0); MEAN CORPUSCULAR HGB CONC 32.4 g/dl (32.0-36.5); MEAN CORPUSCULAR VOLUME 81.8 fl (80.0-96.0); MONO # 0.4 10^3/uL (0.0-0.8); MONO % 5.1 % (2.0-8.0); NEUTROPHILS # 5.4 10^3/uL (1.5-8.5); PLATELET COUNT, AUTOMATED 376 10^3/uL (150-450); RED BLOOD COUNT 1.81 10^6/uL (4.30-6.10); WHITE BLOOD COUNT 7.3 10^3/uL (4.0-10.0)
[2024-01-11 14:09] LABS: HEMATOCRIT 14.8 % (42.0-52.0)
[2024-01-11 14:12] LABS: HEMOGLOBIN 4.8 g/dl (13.5-17.5)
[2024-01-11 14:14] LABS: INR 3.44; PROTHROMBIN TIME 33.3 SECONDS (12.5-14.5)
[2024-01-11 14:31] LABS: ALBUMIN 2.5 G/DL (3.2-5.2); ALKALINE PHOSPHATASE 71 U/L (46-116); ALT/SGPT < 9 U/L (7.0-40); AST/SGOT 15 U/L (<34); BILIRUBIN,TOTAL 0.2 MG/DL (0.3-1.2); BLOOD UREA NITROGEN 26 MG/DL (9-23); CALCIUM LEVEL 9.3 MG/DL (8.3-10.6); CARBON DIOXIDE LEVEL 24 MMOL/L (20-31); CHLORIDE LEVEL 107 MMOL/L (98-107); CREATININE FOR GFR 0.77 MG/DL (0.70-1.30); GLOMERULAR FILTRATION RATE > 60.0 (>49); GLUCOSE, FASTING 121 MG/DL (74-106); POTASSIUM SERUM 3.8 MMOL/L (3.5-5.1); SODIUM LEVEL 137 MMOL/L (136-145); TOTAL PROTEIN 6.2 G/DL (5.7-8.2)
== END ==
LOC: SKLAB2 13:13
PROVIDERS: ATTEND Internal Medicine
DX: R41.82 Altered mental status, unspecified (principal); D68.61 Antiphospholipid syndrome

== ENCOUNTER 2024-01-14 15:45 | Inpatient (IN) | payer MEDICARE, OTHER ==
[~2024-01-14] VITALS: Ht 182.9 cm; Wt 63.7 kg
[~2024-01-14 15:45] MED LIST changes: +AMLO1TAB24 PO; +ATOR1TAB21 PO; +COEN100T PO; +PANT40TA29 PO; +WARF4TAB52 PO
[2024-01-14] MEDS ORDERED: ONDANSETRON 4MG TAB PO PRN (17:20)
[2024-01-14 18:20] VITALS: BP 152/68; TEMP 99; O2SAT 96
[2024-01-14 20:02] VITALS: BP 172/80; TEMP 97.8; O2SAT 99
[2024-01-14] MEDS: **hydrALAZINE** 10 MG TAB PO PRN (21:13)
[2024-01-14] MEDS: PANTOPRAZOLE 40MG TAB (PROTONIX) PO SCH (21:13)
[2024-01-15 04:00] VITALS: BP 138/65; TEMP 98.4; O2SAT 99
[2024-01-15] MEDS: CO-ENZYME Q10 50 MG CAP PO SCH (07:29)
[2024-01-15] MEDS: GABAPENTIN 400MG CAP PO SCH (07:29)
[2024-01-15] MEDS: amLODIPine 5 MG TAB PO SCH (07:29)
[2024-01-15] MEDS: ATORVASTATIN 20 MG TAB PO SCH (07:29)
[2024-01-15] MEDS: ACETAMINOPHEN TAB 650MG DOSE (2X325MG) PO PRN (07:31)
[2024-01-15 07:44] LABS: BASO % 0.4 % (0.0-1.0); EOS # 0.3 10^3/uL (0.0-0.5); EOS % 3.6 % (0.0-3.0); HEMATOCRIT 25.9 % (42.0-52.0); HEMOGLOBIN 8.3 g/dl (13.5-17.5); LYMPH # 1.6 10^3/uL (1.5-5.0); LYMPH % 21.1 % (24.0-44.0); MEAN CORPUSCULAR HEMOGLOBIN 27.8 pg (27.0-33.0); MEAN CORPUSCULAR VOLUME 86.6 fl (80.0-96.0); MONO # 0.8 10^3/uL (0.0-0.8); MONO % 10.4 % (2.0-8.0); NEUTROPHILS # 4.8 10^3/uL (1.5-8.5); PLATELET COUNT, AUTOMATED 400 10^3/uL (150-450); RED BLOOD COUNT 2.99 10^6/uL (4.30-6.10); WHITE BLOOD COUNT 7.5 10^3/uL (4.0-10.0)
[2024-01-15 07:58] LABS: INR 1.09; PARTIAL THROMBOPLASTIN TIME 36.5 SECONDS (24.8-34.2); PROTHROMBIN TIME 13.8 SECONDS (12.5-14.5)
[2024-01-15 08:05] LABS: BLOOD UREA NITROGEN 7 MG/DL (9-23); CALCIUM LEVEL 8.8 MG/DL (8.3-10.6); CARBON DIOXIDE LEVEL 28 MMOL/L (20-31); CHLORIDE LEVEL 108 MMOL/L (98-107); CREATININE FOR GFR 0.64 MG/DL (0.70-1.30); GLOMERULAR FILTRATION RATE > 60.0 (>49); GLUCOSE, FASTING 90 MG/DL (74-106); POTASSIUM SERUM 3.7 MMOL/L (3.5-5.1); SODIUM LEVEL 139 MMOL/L (136-145)
[2024-01-15] MEDS: ENOXAPARIN 40MG/0.4ML SYRINGE (J1650 PER 10MG) SC SCH (11:31)
[2024-01-15 12:00] VITALS: BP 145/60; TEMP 97.7; O2SAT 98
[2024-01-15 20:00] VITALS: BP 160/74; TEMP 98.2; O2SAT 100
[2024-01-16 04:00] VITALS: BP_SYST 127; BP_SYST 132; BP_DIAS 62; BP_DIAS 77; TEMP 98.2; O2SAT 99
[2024-01-16 07:03] LABS: HEMATOCRIT 24.4 % (42.0-52.0); HEMOGLOBIN 7.9 g/dl (13.5-17.5); MEAN CORPUSCULAR HEMOGLOBIN 28.3 pg (27.0-33.0); MEAN CORPUSCULAR HGB CONC 32.4 g/dl (32.0-36.5); MEAN CORPUSCULAR VOLUME 87.5 fl (80.0-96.0); PLATELET COUNT, AUTOMATED 390 10^3/uL (150-450); RED BLOOD COUNT 2.79 10^6/uL (4.30-6.10); WHITE BLOOD COUNT 8.5 10^3/uL (4.0-10.0)
[2024-01-16] MEDS: CLOPIDOGREL 75 MG TAB PO SCH (10:12)
[2024-01-16 11:52] LABS: HEMATOCRIT 24.1 % (42.0-52.0); HEMOGLOBIN 7.9 g/dl (13.5-17.5); MEAN CORPUSCULAR HEMOGLOBIN 28.8 pg (27.0-33.0); MEAN CORPUSCULAR HGB CONC 32.8 g/dl (32.0-36.5); PLATELET COUNT, AUTOMATED 391 10^3/uL (150-450); RED BLOOD COUNT 2.74 10^6/uL (4.30-6.10); WHITE BLOOD COUNT 8.7 10^3/uL (4.0-10.0)
[2024-01-16 12:00] VITALS: BP 135/60; TEMP 98.1; O2SAT 100
[2024-01-16 20:00] VITALS: BP 152/60; TEMP 98.5; O2SAT 99
[2024-01-17 04:15] VITALS: BP 132/62; TEMP 97.9; O2SAT 99
[2024-01-17 08:28] LABS: HEMOGLOBIN 8.1 g/dl (13.5-17.5); MEAN CORPUSCULAR HEMOGLOBIN 28.7 pg (27.0-33.0); MEAN CORPUSCULAR HGB CONC 32.4 g/dl (32.0-36.5); MEAN CORPUSCULAR VOLUME 88.7 fl (80.0-96.0); PLATELET COUNT, AUTOMATED 405 10^3/uL (150-450); RED BLOOD COUNT 2.82 10^6/uL (4.30-6.10); WHITE BLOOD COUNT 8.5 10^3/uL (4.0-10.0)
[2024-01-17 12:00] VITALS: BP 136/70; TEMP 98.2; O2SAT 100
[2024-01-17] MEDS: ENOXAPARIN 30MG/0.3ML SYRINGE (J1650 PER 10MG) SC ONE (12:38)
[2024-01-17 19:25] VITALS: BP 156/70; TEMP 98; O2SAT 98
[2024-01-17] MEDS: ENOXAPARIN 60MG/0.6ML SYRINGE (J1650 PER 10MG) SC SCH (19:57)
[2024-01-18 04:05] VITALS: BP 160/80; TEMP 98.2; O2SAT 99
[2024-01-18 04:30] VITALS: BP 154/72
[2024-01-18 08:11] LABS: HEMATOCRIT 25.2 % (42.0-52.0); HEMOGLOBIN 8.3 g/dl (13.5-17.5); MEAN CORPUSCULAR HGB CONC 32.9 g/dl (32.0-36.5); MEAN CORPUSCULAR VOLUME 88.1 fl (80.0-96.0); PLATELET COUNT, AUTOMATED 407 10^3/uL (150-450); RED BLOOD COUNT 2.86 10^6/uL (4.30-6.10); WHITE BLOOD COUNT 8.3 10^3/uL (4.0-10.0)
[2024-01-18 12:00] VITALS: BP 158/73; TEMP 97.9; O2SAT 96
[2024-01-18 14:47] LABS: INR 1.09; PROTHROMBIN TIME 13.8 SECONDS (12.5-14.5)
[2024-01-18] MEDS ORDERED: WARF-23 PO (14:52)
[2024-01-18] MEDS: WARFARIN SOD 1MG TAB PO SCH (16:31)
[2024-01-18 20:00] VITALS: BP 138/66; TEMP 98.3; O2SAT 100
[2024-01-19 04:00] VITALS: BP 140/82; TEMP 98.3; O2SAT 100
[2024-01-19 06:33] LABS: HEMATOCRIT 24.1 % (42.0-52.0); HEMOGLOBIN 7.8 g/dl (13.5-17.5); MEAN CORPUSCULAR HEMOGLOBIN 28.6 pg (27.0-33.0); MEAN CORPUSCULAR HGB CONC 32.4 g/dl (32.0-36.5); MEAN CORPUSCULAR VOLUME 88.3 fl (80.0-96.0); PLATELET COUNT, AUTOMATED 366 10^3/uL (150-450); RED BLOOD COUNT 2.73 10^6/uL (4.30-6.10); WHITE BLOOD COUNT 8.1 10^3/uL (4.0-10.0)
[2024-01-19 06:51] LABS: INR 1.05; PROTHROMBIN TIME 13.4 SECONDS (12.5-14.5)
[2024-01-19 17:00] VITALS: BP 145/62; TEMP 97.9; O2SAT 100
[2024-01-19 20:00] VITALS: BP 150/68; TEMP 99.1; O2SAT 97
[2024-01-20 04:00] VITALS: BP 140/64; TEMP 98.8; O2SAT 99
[2024-01-20 07:00] LABS: HEMATOCRIT 25.8 % (42.0-52.0); HEMOGLOBIN 8.2 g/dl (13.5-17.5); MEAN CORPUSCULAR HEMOGLOBIN 28.7 pg (27.0-33.0); MEAN CORPUSCULAR HGB CONC 31.8 g/dl (32.0-36.5); MEAN CORPUSCULAR VOLUME 90.2 fl (80.0-96.0); PLATELET COUNT, AUTOMATED 375 10^3/uL (150-450); RED BLOOD COUNT 2.86 10^6/uL (4.30-6.10); WHITE BLOOD COUNT 8.2 10^3/uL (4.0-10.0)
[2024-01-20 07:11] LABS: INR 1.01
[2024-01-20 12:00] VITALS: BP 151/71; TEMP 97.8; O2SAT 96
[2024-01-20 20:00] VITALS: BP 143/80; TEMP 97.7; O2SAT 97
[2024-01-21 04:00] VITALS: BP 138/65; TEMP 98.2; O2SAT 98
[2024-01-21 05:56] LABS: HEMATOCRIT 26.2 % (42.0-52.0); HEMOGLOBIN 8.5 g/dl (13.5-17.5); MEAN CORPUSCULAR HEMOGLOBIN 28.5 pg (27.0-33.0); MEAN CORPUSCULAR HGB CONC 32.4 g/dl (32.0-36.5); MEAN CORPUSCULAR VOLUME 87.9 fl (80.0-96.0); PLATELET COUNT, AUTOMATED 389 10^3/uL (150-450); RED BLOOD COUNT 2.98 10^6/uL (4.30-6.10); WHITE BLOOD COUNT 7.9 10^3/uL (4.0-10.0)
[2024-01-21 06:08] LABS: INR 0.96; PROTHROMBIN TIME 12.5 SECONDS (12.5-14.5)
[2024-01-21 12:00] VITALS: BP 138/66; TEMP 98.1; O2SAT 100
[2024-01-21] MEDS: WARFARIN SOD 3MG TAB PO SCH (16:59)
[2024-01-21 20:00] VITALS: BP 168/78; TEMP 98; O2SAT 100
[2024-01-22 05:06] VITALS: BP 169/79; TEMP 97.8; O2SAT 100
[2024-01-22 07:31] LABS: HEMATOCRIT 28.8 % (42.0-52.0); HEMOGLOBIN 9.3 g/dl (13.5-17.5)
[2024-01-22 07:46] LABS: INR 1.02; PROTHROMBIN TIME 13.1 SECONDS (12.5-14.5)
[2024-01-22 12:00] VITALS: BP 158/74; TEMP 97.8; O2SAT 96
[2024-01-22 20:00] VITALS: BP 135/63; TEMP 98.1; O2SAT 97
[2024-01-23 04:00] VITALS: BP 153/76; TEMP 97.8; O2SAT 99
[2024-01-23 07:13] LABS: HEMATOCRIT 27.4 % (42.0-52.0)
[2024-01-23 07:26] LABS: INR 1.03; PROTHROMBIN TIME 13.2 SECONDS (12.5-14.5)
[2024-01-23 12:00] VITALS: BP 158/74; TEMP 97.8; O2SAT 100
[2024-01-23 20:30] VITALS: BP 177/79; TEMP 98.4; O2SAT 97
[2024-01-23 21:54] VITALS: BP 166/79; O2SAT 94
[2024-01-24 04:00] VITALS: BP 164/74; TEMP 98.4; O2SAT 98
[2024-01-24 06:29] LABS: HEMATOCRIT 29.2 % (42.0-52.0); HEMOGLOBIN 9.4 g/dl (13.5-17.5)
[2024-01-24 06:42] LABS: INR 1.02; PROTHROMBIN TIME 13.1 SECONDS (12.5-14.5)
[2024-01-24 06:54] LABS: ALBUMIN 3.1 G/DL (3.2-5.2); ALKALINE PHOSPHATASE 105 U/L (46-116); ALT/SGPT 15 U/L (7.0-40); AST/SGOT 27 U/L (<34); BILIRUBIN,TOTAL 0.3 MG/DL (0.3-1.2); BLOOD UREA NITROGEN 12 MG/DL (9-23); CALCIUM LEVEL 9.2 MG/DL (8.3-10.6); CARBON DIOXIDE LEVEL 24 MMOL/L (20-31); CHLORIDE LEVEL 104 MMOL/L (98-107); CREATININE FOR GFR 0.73 MG/DL (0.70-1.30); GLOMERULAR FILTRATION RATE > 60.0 (>42); GLUCOSE, FASTING 96 MG/DL (74-106); SODIUM LEVEL 133 MMOL/L (136-145); TOTAL PROTEIN 6.9 G/DL (5.7-8.2)
[2024-01-24 09:37] LABS: PROCALCITONIN 0.12 ng/ml
[2024-01-24 11:05] LABS: URIC ACID 8.2 MG/DL (3.7-9.2)
[2024-01-24 11:06] LABS: MEAN CORPUSCULAR HEMOGLOBIN 28.6 pg (27.0-33.0); MEAN CORPUSCULAR HGB CONC 32.3 g/dl (32.0-36.5); MEAN CORPUSCULAR VOLUME 88.4 fl (80.0-96.0); PLATELET COUNT, AUTOMATED 212 10^3/uL (150-450); RED BLOOD COUNT 3.29 10^6/uL (4.30-6.10); WHITE BLOOD COUNT 10.2 10^3/uL (4.0-10.0)
[2024-01-24] MEDS: predniSONE 20 MG TAB PO SCH (11:24)
[2024-01-24 12:00] VITALS: BP 136/63; TEMP 97.8; O2SAT 98
[2024-01-24] MEDS: WARFARIN SOD 5MG TAB PO SCH (16:13)
[2024-01-24 20:00] VITALS: BP 144/70; TEMP 98.1; O2SAT 98
[2024-01-25 04:00] VITALS: BP 140/66; TEMP 98.2; O2SAT 100
[2024-01-25 07:28] LABS: HEMATOCRIT 27.6 % (42.0-52.0); HEMOGLOBIN 8.9 g/dl (13.5-17.5)
[2024-01-25 07:43] LABS: INR 1.13; PROTHROMBIN TIME 14.2 SECONDS (12.5-14.5)
[2024-01-25 12:00] VITALS: BP 141/67; TEMP 97.6; O2SAT 100
[2024-01-25 20:07] VITALS: BP 156/60; TEMP 98.2; O2SAT 100
[2024-01-26 04:00] VITALS: BP 175/74; TEMP 97.7; O2SAT 99
[2024-01-26 04:30] VITALS: BP 152/64
[2024-01-26 06:18] LABS: HEMATOCRIT 26.7 % (42.0-52.0); HEMOGLOBIN 8.5 g/dl (13.5-17.5)
[2024-01-26 06:24] LABS: INR 1.23; PROTHROMBIN TIME 15.1 SECONDS (12.5-14.5)
[2024-01-26] MEDS: ACETAMINOPHEN TAB 650MG DOSE (2X325MG) PO SCH (09:00)
[2024-01-26] MEDS: GABAPENTIN 100 MG CAP PO SCH (10:35)
[2024-01-26 12:00] VITALS: BP 151/70; TEMP 98.8; O2SAT 99
[2024-01-26 20:00] VITALS: BP 155/73; TEMP 97.5; O2SAT 99
[2024-01-27 04:00] VITALS: BP 158/60; TEMP 97.5; O2SAT 99
[2024-01-27 08:45] LABS: HEMATOCRIT 28.1 % (42.0-52.0); HEMOGLOBIN 9.1 g/dl (13.5-17.5); MEAN CORPUSCULAR HEMOGLOBIN 28.2 pg (27.0-33.0); MEAN CORPUSCULAR HGB CONC 32.4 g/dl (32.0-36.5); PLATELET COUNT, AUTOMATED 337 10^3/uL (150-450); RED BLOOD COUNT 3.23 10^6/uL (4.30-6.10); WHITE BLOOD COUNT 8.9 10^3/uL (4.0-10.0)
[2024-01-27 09:19] LABS: BLOOD UREA NITROGEN 13 MG/DL (9-23); CALCIUM LEVEL 9.7 MG/DL (8.3-10.6); CARBON DIOXIDE LEVEL 25 MMOL/L (20-31); CHLORIDE LEVEL 106 MMOL/L (98-107); CREATININE FOR GFR 0.69 MG/DL (0.70-1.30); GLOMERULAR FILTRATION RATE > 60.0 (>42); GLUCOSE, FASTING 91 MG/DL (74-106); POTASSIUM SERUM 4.2 MMOL/L (3.5-5.1); SODIUM LEVEL 138 MMOL/L (136-145)
[2024-01-27 12:00] VITALS: BP 157/70; TEMP 98; O2SAT 99
[2024-01-27] MEDS: WARFARIN SOD 3MG TAB PO SCH (17:38)
[2024-01-27 20:00] VITALS: BP 152/94; TEMP 97.9; O2SAT 100
[2024-01-27] MEDS: GABAPENTIN 400MG CAP PO SCH (21:06)
[2024-01-28 04:00] VITALS: BP 171/81; TEMP 97.6; O2SAT 100
[2024-01-28 04:15] VITALS: BP 181/85
[2024-01-28 05:00] VITALS: BP 156/68
[2024-01-28 08:46] LABS: INR 1.38; PROTHROMBIN TIME 16.5 SECONDS (12.5-14.5)
[2024-01-28 12:00] VITALS: BP 146/66; TEMP 97.1; O2SAT 99
[2024-01-28 20:00] VITALS: BP 149/66; TEMP 97.6; O2SAT 99
[2024-01-29 04:00] VITALS: BP 162/81; TEMP 97.9; O2SAT 99
[2024-01-29 07:14] LABS: INR 1.71; PROTHROMBIN TIME 19.5 SECONDS (12.5-14.5)
[2024-01-29 12:00] VITALS: BP 141/64; TEMP 97.2; O2SAT 100
[2024-01-29 20:00] VITALS: BP 156/74; TEMP 98; O2SAT 100
[2024-01-30 04:00] VITALS: BP 164/79; TEMP 98.2; O2SAT 97
[2024-01-30 09:06] LABS: INR 2.18; PROTHROMBIN TIME 23.5 SECONDS (12.5-14.5)
[2024-01-30 12:00] VITALS: BP 157/80; TEMP 97.7; O2SAT 98
[2024-01-30 20:00] VITALS: BP 139/70; TEMP 97.6; O2SAT 98
[2024-01-31 04:00] VITALS: BP 163/77; TEMP 98.2; O2SAT 99
[2024-01-31 09:36] LABS: INR 2.59; PROTHROMBIN TIME 26.9 SECONDS (12.5-14.5)
[2024-01-31] MEDS: ACETAMINOPHEN TAB 650MG DOSE (2X325MG) PO SCH (11:20)
[2024-01-31] MEDS: ACETAMINOPHEN 500 MG TAB PO ONE (11:27)
[2024-01-31] MEDS: WARFARIN SOD 5MG TAB PO SCH (16:47)
[2024-01-31 20:00] VITALS: BP 140/67; TEMP 97.3; O2SAT 98
[2024-02-01 04:00] VITALS: BP 160/74; TEMP 97.9; O2SAT 99
[2024-02-01 04:30] VITALS: BP 148/74
[2024-02-01 05:45] LABS: HEMATOCRIT 33.1 % (42.0-52.0); HEMOGLOBIN 10.5 g/dl (13.5-17.5); MEAN CORPUSCULAR HEMOGLOBIN 27.6 pg (27.0-33.0); MEAN CORPUSCULAR HGB CONC 31.7 g/dl (32.0-36.5); MEAN CORPUSCULAR VOLUME 87.1 fl (80.0-96.0); PLATELET COUNT, AUTOMATED 361 10^3/uL (150-450); WHITE BLOOD COUNT 9.7 10^3/uL (4.0-10.0)
[2024-02-01 05:59] LABS: INR 2.65; PROTHROMBIN TIME 27.3 SECONDS (12.5-14.5)
[2024-02-01 06:13] LABS: BLOOD UREA NITROGEN 11 MG/DL (9-23); CALCIUM LEVEL 9.8 MG/DL (8.3-10.6); CARBON DIOXIDE LEVEL 29 MMOL/L (20-31); CHLORIDE LEVEL 104 MMOL/L (98-107); CREATININE FOR GFR 0.73 MG/DL (0.70-1.30); GLOMERULAR FILTRATION RATE > 60.0 (>42); GLUCOSE, FASTING 93 MG/DL (74-106); POTASSIUM SERUM 4.2 MMOL/L (3.5-5.1); SODIUM LEVEL 138 MMOL/L (136-145)
[2024-02-01 12:00] VITALS: BP 152/80; TEMP 98; O2SAT 99
[2024-02-01 20:00] VITALS: BP 159/76; TEMP 98.3; O2SAT 98
[2024-02-02 04:00] VITALS: BP 156/70; TEMP 97.7; O2SAT 97
[2024-02-02 12:00] VITALS: BP 134/92; TEMP 98.1; O2SAT 98
[2024-02-02 20:16] VITALS: BP 131/63; TEMP 98.4; O2SAT 98
[2024-02-03 04:00] VITALS: BP 136/65; TEMP 97.7; O2SAT 100
[2024-02-03 07:37] VITALS: BP 136/65
[2024-02-03 08:43] LABS: INR 2.93; PROTHROMBIN TIME 29.5 SECONDS (12.5-14.5)
[2024-02-03] MEDS ORDERED: CLOP75TA2 PO (08:55)
[2024-02-03] MEDS ORDERED: GABA-284 PO (08:55)
== END 2024-02-03 10:12 | DRG 812 ==
LOC: M PM&R 18:13 → UNDODISIN 18:50
PROVIDERS: ADMIT Student in an Organized Health Care Education/Training Program; ATTEND Physical Medicine & Rehabilitation
DX: D64.9 Anemia, unspecified (principal); D68.61 Antiphospholipid syndrome; K62.5 Hemorrhage of anus and rectum; I73.1 Thromboangiitis obliterans [Buerger's disease]; G89.29 Other chronic pain; I10 Essential (primary) hypertension; E78.5 Hyperlipidemia, unspecified; L93.0 Discoid lupus erythematosus; M19.90 Unspecified osteoarthritis, unspecified site; K59.09 Other constipation; F43.10 Post-traumatic stress disorder, unspecified; J84.10 Pulmonary fibrosis, unspecified; I65.21 Occlusion and stenosis of right carotid artery; I25.10 Atherosclerotic heart disease of native coronary artery without angina pectoris; H91.93 Unspecified hearing loss, bilateral; Z89.612 Acquired absence of left leg above knee; Z98.62 Peripheral vascular angioplasty status; Z74.09 Other reduced mobility; Z86.73 Personal history of transient ischemic attack (TIA), and cerebral infarction without residual deficits; Z74.1 Need for assistance with personal care; Z79.899 Other long term (current) drug therapy; M25.532 Pain in left wrist

== ENCOUNTER → 2024-02-11 | Outpatient (REF) | payer MEDICARE, OTHER ==
[~2024-02-11] MED LIST changes: +WARF-23 PO
[2024-02-11 12:43] LABS: HEMATOCRIT 34.5 % (42.0-52.0); HEMOGLOBIN 11.2 g/dl (13.5-17.5); MEAN CORPUSCULAR HEMOGLOBIN 27.3 pg (27.0-33.0); MEAN CORPUSCULAR HGB CONC 32.5 g/dl (32.0-36.5); MEAN CORPUSCULAR VOLUME 83.9 fl (80.0-96.0); PLATELET COUNT, AUTOMATED 387 10^3/uL (150-450); RED BLOOD COUNT 4.11 10^6/uL (4.30-6.10); WHITE BLOOD COUNT 12.9 10^3/uL (4.0-10.0)
[2024-02-11 13:05] LABS: INR 3.19; PROTHROMBIN TIME 31.5 SECONDS (12.5-14.5)
[2024-02-11 13:08] LABS: BLOOD UREA NITROGEN 23 MG/DL (9-23); CALCIUM LEVEL 9.5 MG/DL (8.3-10.6); CARBON DIOXIDE LEVEL 25 MMOL/L (20-31); CHLORIDE LEVEL 105 MMOL/L (98-107); CREATININE FOR GFR 0.95 MG/DL (0.70-1.30); GLOMERULAR FILTRATION RATE > 60.0 (>42); GLUCOSE, FASTING 88 MG/DL (74-106); POTASSIUM SERUM 4.3 MMOL/L (3.5-5.1); SODIUM LEVEL 136 MMOL/L (136-145)
== END ==
LOC: SKLAB2 11:59
PROVIDERS: ATTEND Internal Medicine
DX: D64.9 Anemia, unspecified (principal); I10 Essential (primary) hypertension; Z95.4 Presence of other heart-valve replacement; Z79.01 Long term (current) use of anticoagulants

== ENCOUNTER → 2024-02-14 | Outpatient (REF) | payer MEDICARE, SELFPAY | LOC: SKLAB2 19:28 → M RAD 19:28 | PROVIDERS: ATTEND Internal Medicine | DX: R22.31 Localized swelling, mass and lump, right upper limb (principal) ==

== ENCOUNTER → 2024-02-15 | Outpatient (REF) | payer MEDICARE ==
[2024-02-15 08:19] LABS: BASO % 0.5 % (0.0-1.0); EOS # 0.1 10^3/uL (0.0-0.5); EOS % 1.8 % (0.0-3.0); HEMATOCRIT 31.9 % (42.0-52.0); HEMOGLOBIN 10.6 g/dl (13.5-17.5); LYMPH # 2.1 10^3/uL (1.5-5.0); LYMPH % 26.3 % (24.0-44.0); MEAN CORPUSCULAR HGB CONC 33.2 g/dl (32.0-36.5); MEAN CORPUSCULAR VOLUME 81.4 fl (80.0-96.0); MONO # 1.1 10^3/uL (0.0-0.8); NEUTROPHILS # 4.6 10^3/uL (1.5-8.5); NEUTROPHILS % 57.1 % (36.0-66.0); PLATELET COUNT, AUTOMATED 389 10^3/uL (150-450); RED BLOOD COUNT 3.92 10^6/uL (4.30-6.10)
[2024-02-15 08:31] LABS: INR 2.3; PROTHROMBIN TIME 24.5 SECONDS (12.5-14.5)
[2024-02-15 08:45] LABS: URIC ACID 9.3 MG/DL (3.7-9.2)
[2024-02-15 08:49] LABS: ALBUMIN 3.3 G/DL (3.2-5.2); ALKALINE PHOSPHATASE 86 U/L (46-116); ALT/SGPT 12 U/L (7.0-40); AST/SGOT 16 U/L (<34); BILIRUBIN,TOTAL 0.3 MG/DL (0.3-1.2); BLOOD UREA NITROGEN 16 MG/DL (9-23); CALCIUM LEVEL 9.2 MG/DL (8.3-10.6); CARBON DIOXIDE LEVEL 23 MMOL/L (20-31); CHLORIDE LEVEL 107 MMOL/L (98-107); CREATININE FOR GFR 0.85 MG/DL (0.70-1.30); GLOMERULAR FILTRATION RATE > 60.0 (>42); GLUCOSE, FASTING 94 MG/DL (74-106); POTASSIUM SERUM 3.8 MMOL/L (3.5-5.1); SODIUM LEVEL 137 MMOL/L (136-145)
== END ==
LOC: SKLAB2 06:55
PROVIDERS: ATTEND Internal Medicine
DX: D68.61 Antiphospholipid syndrome (principal)

== ENCOUNTER → 2024-02-24 | Outpatient (REF) | payer MEDICARE ==
[2024-02-24 17:17] LABS: HEMATOCRIT 36.9 % (42.0-52.0); HEMOGLOBIN 12.1 g/dl (13.5-17.5); MEAN CORPUSCULAR HEMOGLOBIN 27.3 pg (27.0-33.0); MEAN CORPUSCULAR HGB CONC 32.8 g/dl (32.0-36.5); MEAN CORPUSCULAR VOLUME 83.1 fl (80.0-96.0); PLATELET COUNT, AUTOMATED 505 10^3/uL (150-450); RED BLOOD COUNT 4.44 10^6/uL (4.30-6.10); WHITE BLOOD COUNT 13.4 10^3/uL (4.0-10.0)
[2024-02-24 17:31] LABS: INR 3.12; PROTHROMBIN TIME 30.9 SECONDS (12.5-14.5)
== END ==
LOC: SKLAB2 07:28
PROVIDERS: ATTEND Internal Medicine
DX: D64.9 Anemia, unspecified (principal); Z79.01 Long term (current) use of anticoagulants

== ENCOUNTER → 2024-03-02 | Outpatient (CLI) | payer MEDICARE, OTHER ==
[2024-03-02 16:09] LABS: BASO # 0.1 10^3/uL (0.0-0.2); BASO % 0.7 % (0.0-1.0); EOS # 0.2 10^3/uL (0.0-0.5); EOS % 1.4 % (0.0-3.0); HEMATOCRIT 32.2 % (42.0-52.0); HEMOGLOBIN 10.5 g/dl (13.5-17.5); LYMPH # 2.8 10^3/uL (1.5-5.0); LYMPH % 21.3 % (24.0-44.0); MEAN CORPUSCULAR HEMOGLOBIN 26.5 pg (27.0-33.0); MEAN CORPUSCULAR HGB CONC 32.6 g/dl (32.0-36.5); MEAN CORPUSCULAR VOLUME 81.3 fl (80.0-96.0); MONO # 1.2 10^3/uL (0.0-0.8); MONO % 8.9 % (2.0-8.0); NEUTROPHILS % 67.5 % (36.0-66.0); PLATELET COUNT, AUTOMATED 433 10^3/uL (150-450); RED BLOOD COUNT 3.96 10^6/uL (4.30-6.10); WHITE BLOOD COUNT 13.3 10^3/uL (4.0-10.0)
[2024-03-02 16:20] LABS: INR 3.01; PROTHROMBIN TIME 30.1 SECONDS (12.5-14.5)
[2024-03-02 16:38] LABS: ALBUMIN 3.6 G/DL (3.2-5.2); ALKALINE PHOSPHATASE 92 U/L (46-116); ALT/SGPT < 9 U/L (7.0-40); AST/SGOT 15 U/L (<34); BILIRUBIN,TOTAL 0.3 MG/DL (0.3-1.2); BLOOD UREA NITROGEN 12 MG/DL (9-23); CALCIUM LEVEL 10.1 MG/DL (8.3-10.6); CARBON DIOXIDE LEVEL 26 MMOL/L (20-31); CHLORIDE LEVEL 104 MMOL/L (98-107); CREATININE FOR GFR 0.82 MG/DL (0.70-1.30); GLOMERULAR FILTRATION RATE > 60.0 (>42); GLUCOSE, FASTING 79 MG/DL (74-106); POTASSIUM SERUM 4.1 MMOL/L (3.5-5.1); SODIUM LEVEL 138 MMOL/L (136-145); TOTAL PROTEIN 7.9 G/DL (5.7-8.2)
== END ==
LOC: M LAB 15:30
PROVIDERS: ATTEND Registered Nurse
DX: D68.61 Antiphospholipid syndrome (principal)

== ENCOUNTER → 2024-03-07 | Outpatient (REF) | payer MEDICARE, OTHER ==
[2024-03-07 14:59] LABS: BASO # 0.1 10^3/uL (0.0-0.2); BASO % 0.8 % (0.0-1.0); EOS # 0.2 10^3/uL (0.0-0.5); EOS % 2.5 % (0.0-3.0); HEMATOCRIT 35.1 % (42.0-52.0); HEMOGLOBIN 11.5 g/dl (13.5-17.5); LYMPH # 2.2 10^3/uL (1.5-5.0); LYMPH % 23.2 % (24.0-44.0); MEAN CORPUSCULAR HEMOGLOBIN 26.1 pg (27.0-33.0); MEAN CORPUSCULAR HGB CONC 32.8 g/dl (32.0-36.5); MEAN CORPUSCULAR VOLUME 79.8 fl (80.0-96.0); MONO # 0.9 10^3/uL (0.0-0.8); MONO % 9.6 % (2.0-8.0); NEUTROPHILS # 5.9 10^3/uL (1.5-8.5); NEUTROPHILS % 63.7 % (36.0-66.0); PLATELET COUNT, AUTOMATED 376 10^3/uL (150-450); WHITE BLOOD COUNT 9.3 10^3/uL (4.0-10.0)
[2024-03-07 15:18] LABS: INR 1.39; PROTHROMBIN TIME 16.6 SECONDS (12.5-14.5)
== END ==
LOC: M SHH 14:17
PROVIDERS: ATTEND Registered Nurse
DX: D68.61 Antiphospholipid syndrome (principal)

== ENCOUNTER → 2024-03-15 | Outpatient (REF) | payer MEDICARE, OTHER ==
[2024-03-15 12:39] LABS: BASO # 0.1 10^3/uL (0.0-0.2); BASO % 0.8 % (0.0-1.0); EOS # 0.2 10^3/uL (0.0-0.5); EOS % 2.3 % (0.0-3.0); HEMATOCRIT 34.2 % (42.0-52.0); HEMOGLOBIN 11.1 g/dl (13.5-17.5); LYMPH # 2.6 10^3/uL (1.5-5.0); LYMPH % 33.9 % (24.0-44.0); MEAN CORPUSCULAR HGB CONC 32.5 g/dl (32.0-36.5); MEAN CORPUSCULAR VOLUME 80.1 fl (80.0-96.0); MONO # 0.9 10^3/uL (0.0-0.8); MONO % 11.5 % (2.0-8.0); NEUTROPHILS % 51.2 % (36.0-66.0); PLATELET COUNT, AUTOMATED 408 10^3/uL (150-450); RED BLOOD COUNT 4.27 10^6/uL (4.30-6.10); WHITE BLOOD COUNT 7.7 10^3/uL (4.0-10.0)
[2024-03-15 12:58] LABS: INR 1.05; PROTHROMBIN TIME 13.4 SECONDS (12.5-14.5)
== END ==
LOC: M LAB REF 12:30
PROVIDERS: ATTEND Registered Nurse
DX: D68.61 Antiphospholipid syndrome (principal); Z79.01 Long term (current) use of anticoagulants

== ENCOUNTER → 2024-03-22 | Outpatient (REF) | payer MEDICARE, OTHER ==
[2024-03-22 15:00] LABS: BASO # 0.1 10^3/uL (0.0-0.2); EOS # 0.2 10^3/uL (0.0-0.5); EOS % 2.4 % (0.0-3.0); HEMATOCRIT 34.3 % (42.0-52.0); HEMOGLOBIN 11.4 g/dl (13.5-17.5); LYMPH # 2.6 10^3/uL (1.5-5.0); LYMPH % 30.9 % (24.0-44.0); MEAN CORPUSCULAR HEMOGLOBIN 26.6 pg (27.0-33.0); MEAN CORPUSCULAR HGB CONC 33.2 g/dl (32.0-36.5); MEAN CORPUSCULAR VOLUME 80.1 fl (80.0-96.0); MONO # 0.8 10^3/uL (0.0-0.8); MONO % 9.3 % (2.0-8.0); NEUTROPHILS # 4.7 10^3/uL (1.5-8.5); NEUTROPHILS % 56.3 % (36.0-66.0); PLATELET COUNT, AUTOMATED 395 10^3/uL (150-450); RED BLOOD COUNT 4.28 10^6/uL (4.30-6.10); WHITE BLOOD COUNT 8.4 10^3/uL (4.0-10.0)
[2024-03-22 15:19] LABS: INR 1.11
== END ==
LOC: M SHH 14:53
PROVIDERS: ATTEND Registered Nurse
DX: D68.61 Antiphospholipid syndrome (principal)

== ENCOUNTER → 2024-03-29 | Outpatient (REF) | payer MEDICARE, OTHER ==
[2024-03-29 12:38] LABS: BASO # 0.1 10^3/uL (0.0-0.2); EOS # 0.2 10^3/uL (0.0-0.5); HEMATOCRIT 36.3 % (42.0-52.0); HEMOGLOBIN 11.7 g/dl (13.5-17.5); LYMPH # 2.6 10^3/uL (1.5-5.0); MEAN CORPUSCULAR HEMOGLOBIN 26.1 pg (27.0-33.0); MEAN CORPUSCULAR HGB CONC 32.2 g/dl (32.0-36.5); MEAN CORPUSCULAR VOLUME 80.8 fl (80.0-96.0); MONO # 0.7 10^3/uL (0.0-0.8); MONO % 8.6 % (2.0-8.0); NEUTROPHILS # 4.2 10^3/uL (1.5-8.5); NEUTROPHILS % 54.1 % (36.0-66.0); PLATELET COUNT, AUTOMATED 346 10^3/uL (150-450); RED BLOOD COUNT 4.49 10^6/uL (4.30-6.10); WHITE BLOOD COUNT 7.7 10^3/uL (4.0-10.0)
[2024-03-29 12:59] LABS: INR 0.97; PROTHROMBIN TIME 12.6 SECONDS (12.5-14.5)
== END ==
LOC: M LAB REF 12:20
PROVIDERS: ATTEND Registered Nurse
DX: D68.61 Antiphospholipid syndrome (principal)

== ENCOUNTER → 2024-04-05 | Outpatient (REF) | payer MEDICARE, OTHER ==
[2024-04-05 14:20] LABS: BASO # 0.1 10^3/uL (0.0-0.2); BASO % 0.6 % (0.0-1.0); EOS # 0.2 10^3/uL (0.0-0.5); EOS % 1.5 % (0.0-3.0); HEMATOCRIT 37.6 % (42.0-52.0); HEMOGLOBIN 12.2 g/dl (13.5-17.5); LYMPH # 2.6 10^3/uL (1.5-5.0); LYMPH % 24.6 % (24.0-44.0); MEAN CORPUSCULAR HGB CONC 32.4 g/dl (32.0-36.5); MONO # 1.1 10^3/uL (0.0-0.8); MONO % 10.6 % (2.0-8.0); NEUTROPHILS # 6.6 10^3/uL (1.5-8.5); NEUTROPHILS % 62.4 % (36.0-66.0); PLATELET COUNT, AUTOMATED 295 10^3/uL (150-450); WHITE BLOOD COUNT 10.6 10^3/uL (4.0-10.0)
[2024-04-05 14:32] LABS: INR 1.1; PROTHROMBIN TIME 13.9 SECONDS (12.5-14.5)
== END ==
LOC: M LAB REF 14:05
PROVIDERS: ATTEND Registered Nurse
DX: D68.61 Antiphospholipid syndrome (principal)